=== PATIENT | male | born 1970 | race Caucasian/White ===

== ENCOUNTER → 2021-01-25 | Outpatient (CLI) | payer BC ==
--- NOTE | 2021-01-25 14:25 | XR ---
EXAMINATION TYPE: XR lumbosacral spine min 4V DATE OF EXAM: 01/25/2021 CLINICAL HISTORY: pain COMPARISON: NONE TECHNIQUE: Frontal, lateral, and oblique images of the lumbar spine are obtained. FINDINGS: There are 5 lumbar type vertebral bodies identified. The lumbar spine shows satisfactory alignment without evidence of acute fracture or dislocation. Vertebral body heights are within normal limits. Degenerative changes noted. The overlying soft tissue appears unremarkable. IMPRESSION: No acute fracture or dislocation is seen in the lumbar spine.ICD 10 NO FRACTURE, INITIAL EVALUATION
--- NOTE | 2021-01-25 14:29 | XR ---
EXAMINATION TYPE: XR thoracic spine complete DATE OF EXAM: 01/25/2021 CLINICAL HISTORY: pain TECHNIQUE: Frontal, lateral, and swimmer's view of thoracic spine are obtained. COMPARISON: None. FINDINGS: Thoracic spine show satisfactory alignment without evidence of acute fracture or dislocatio n. Vertebral body heights are preserved. Disc spaces are well preserved. Visualized ribs are unrem arkable. IMPRESSION: No acute fracture or dislocation is seen in the thoracic spine. ICD 10 NO FRACTURE, INIT IAL EVALUATION
--- NOTE | 2021-01-25 14:39 | XR ---
EXAMINATION TYPE: XR cervical spine w flex/ext DATE OF EXAM: 01/25/2021 TECHNIQUE: Frontal, lateral, oblique, swimmers, and open mouth view of the cervical spine are obtaine d.Flexion and extension views are obtained. HISTORY: JT STIFFNESS,LOSS ROM,CERVICALGIA,THOR PAIN,LBP COMPARISON: None FINDINGS: The cervical spine is visualized in its entirety from C1 thru the top of T1 level, it is s atisfactory in alignment without evidence of acute fracture or dislocation. The pre-vertebral soft t issue appears within normal limits. Moderate degenerative changes and spurring. Normal alignment at n eutral, extension, and flexion. The C1-C2 articulation is within normal limits on the open mouth vie w. The oblique images are within normal limits. IMPRESSION: No acute fracture or dislocation is seen in the cervical spine.
== END | disposition home or self-care (01) ==
LOC: RADXRYALE 12:20
PROVIDERS: ATTEND Family Medicine
DX: M54.2 Cervicalgia (principal); M54.5 Low back pain; M54.6 Pain in thoracic spine; M25.60 Stiffness of unspecified joint, not elsewhere classified
CPT/HCPCS: 72052; 72072; 72110

== ENCOUNTER 2021-02-07 04:11 | Emergency (ER) | payer BC ==
[2021-02-07 04:22] VITALS: TEMP 99.5
[2021-02-07] MEDS ORDERED: SODIUM CHLORIDE 0.9% 1,000 ML IV STA (04:32)
--- NOTE | 2021-02-07 04:32 | ED ---
Chest Pain HPI - General Chief Complaint: Chest Pain Stated Complaint: Flank Pain Time Seen by Provider: 02/07/21 04:16 Source: patient, EMS, RN notes reviewed, old records reviewed Mode of arrival: EMS Limitations: no limitations - History of Present Illness Initial Comments: This is a 50-year-old male DF for evaluation. Patient with chest pain not fe eling well. Multiple complaints shortness of breath increased cough and congestion denying fevers no recent travel history no sick contacts. Patient states pain is side radiates to back radiates to the chest radiates to the abdomen. Patient has no significant medical history MD Complaint: chest pain -: days(s) Onset: during rest, during exertion Pain Location: substernal, left chest Pain Radiation: back Severity: moderate Severity scale (1-10): 4 Quality: tightness Consistency: constant Improves With: nothing Worsens With: nothing Context: recent illness Anginal Symptoms: dyspnea Other Symptoms: cough, palpitations Treatments Prior to Arrival: none - Related Data Previous Rx's Medication Instructions Recorded Amoxic-Pot Clav 875-125Mg 1 tab PO Q12HR #14 tablet 02/07/21 [Augmentin 875-125] Azithromycin [Zithromax Z-pack (6 0 mg PO DIRECTED #1 pack 02/07/21 tabs)] Allergies Allergy/AdvReac Type Severity Reaction Status Date / Time No Known Allergies Allergy Verified 02/07/21 04:21 Review of Systems ROS Statement: Those systems with pertinent positive or pertinent negative responses have been documented in the HPI. ROS Other: All systems not noted in ROS Statement are negative. 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 Past Psychological History: No Psychological Hx Reported Smoking Status: Current every day smoker Past Alcohol Use History: Occasional Past Drug Use History: None Reported General Exam Limitations: no limitations Course Vital Signs 02/07/21 02/07/21 02/07/21 04:13 06:00 06:53 Temperature 99.5 F Pulse Rate 99 87 87 Respiratory 18 20 20 Rate Blood Pressure 131/83 126/72 133/76 O2 Sat by Pulse 97 97 97 Oximetry - Reevaluation(s) Reevaluation #1: Medical record is reviewed Patient has improved pain control Patient informed of results and questions answered Reevaluation #2: Studies CTA chest abdomen pelvis negative for acute disease Chest Pain MDM - MDM 50 male of atypical chest and abdominal pain. Patient coming DF for evaluation. Patient does appear to have pneumonia. Will treat for pneumonia coronavirus currently negative. Patient can be discharged home Disposition Clinical Impression: Atypical chest pain, Pneumonia Narrative: ro [facility] Disposition: ADMITTED IP TO THIS HOSP Prescriptions: Amoxic-Pot Clav 875-125Mg [Augmentin 875-125] 1 tab PO Q12HR #14 tablet Azithromycin [Zithromax Z-pack (6 tabs)] 0 mg PO DIRECTED #1 pack Referrals: None,Stated [Primary Care Provider] - 1-2 days
[2021-02-07] MEDS ORDERED: KETOROLAC 15 MG/ML 1 ML VIAL IVP STA (04:33)
[2021-02-07 05:04] LABS: Basophils # (A) 0.1 k/uL (0-0.2); Basophils % (A) 0 %; Eosinophils # (A) 0.1 k/uL (0-0.7); Eosinophils % (A) 1 %; HCT 46.4 % (39.0-53.0); HGB 15.8 gm/dL (13.0-17.5); Lymphocytes # (A) 2.1 k/uL (1.0-4.8); Lymphocytes % (A) 12 %; MCH 29.1 pg (25.0-35.0); MCV 85.5 fL (80.0-100.0); Mean Platelet Volume 6.6; Monocytes # (A) 0.7 k/uL (0-1.0); Monocytes % (A) 4 %; Neutrophils # (A) 14.5 k/uL (1.3-7.7); Neutrophils % (A) 83 %; Platelet Count 189 k/uL (150-450); RBC 5.43 m/uL (4.30-5.90); RDW 13.5 % (11.5-15.5); WBC 17.5 k/uL (3.8-10.6)
[2021-02-07 05:14] LABS: ALT 23 U/L (4-49); AST 19 U/L (17-59); African American GFR (CKD) >90 (>60 ml/min/1.73 sqM); Albumin 3.5 g/dL (3.5-5.0); Alkaline Phosphatase 94 U/L (38-126); Anion Gap 6 mmol/L; Blood Urea Nitrogen 12 mg/dL (9-20); Carbon Dioxide 22 mmol/L (22-30); Chloride 108 mmol/L (98-107); Creatine Kinase 36 U/L (55-170); Glucose 114 mg/dL (74-99); Lipase 182 U/L (23-300); Magnesium 1.9 mg/dL (1.6-2.3); Non-African American GFR(CKD) >90 (>60 ml/min/1.73 sqM); Sodium 136 mmol/L (137-145); Total Bilirubin 0.7 mg/dL (0.2-1.3)
[2021-02-07 05:25] LABS: Creatine Kinase MB 0.4 ng/mL (0.0-2.4); Troponin I <0.012 ng/mL (0.000-0.034)
[2021-02-07 05:27] LABS: D-Dimer <0.17 mg/L FEU (<0.60); INR 0.8 (<1.2); Partial Thromboplastin Time 24.9 sec (22.0-30.0); Prothrombin Time 9.4 sec (9.0-12.0)
--- NOTE | 2021-02-07 05:50 | CT ---
EXAM: CT Abdomen and Pelvis With Intravenous Contrast CLINICAL HISTORY: ITS.REASON CT Reason: pain TECHNIQUE: Axial computed tomography images of the abdomen and pelvis with intravenous contrast. CTDI is 29.9 mGy and DLP is 1460 mGy-cm. This CT exam was performed using one or more of the following dose reduction techniques: automated exposure control, adjustment of the mA and/or kV according to patient size, and/or use of iterative reconstruction technique. COMPARISON: No relevant prior studies available. FINDINGS: Lung bases: The findings regarding the lung bases, please see the CT report of the chest performed the same day. ABDOMEN: Liver: Subcentimeter hypoattenuating rounded structures noted in the right lobe of the liver and the posterior aspect of the left lobe of the liver are too small to characterize but are presumed hepatic cysts. Gallbladder and bile ducts: The gallbladder is predominantly decompressed. No calcified stones. No ductal dilation. Pancreas: Unremarkable. No mass. No ductal dilation. Spleen: Unremarkable. No splenomegaly. Adrenals: Unremarkable. No mass. Kidneys and ureters: The kidneys demonstrate normal enhancement. The right kidney is malrotated. There is a 13 mm cortical cyst in the lateral aspect of the left kidney. No hydronephrosis or obstructing nephrolithiasis. Incidental subcentimeter nonobstructive nephrolithiasis in the inferior pole the right kidney. Stomach and bowel: Unremarkable. No obstruction. No mucosal thickening. PELVIS: Appendix: A normal caliber appendix is noted medial to the cecum in the right lower quadrant. Bladder: Unremarkable. No mass. Reproductive: Unremarkable as visualized. ABDOMEN and PELVIS: Intraperitoneal space: Unremarkable. No free air. No significant fluid collection. Bones/joints: No acute fracture. No dislocation. Soft tissues: Unremarkable. Vasculature: Unremarkable. No abdominal aortic aneurysm. Lymph nodes: Unremarkable. No enlarged lymph nodes. IMPRESSION: No significant acute findings in the abdomen or pelvis to suggest the patient's reported clinical symptoms. No bowel obstruction. No free intraperitoneal fluid or pneumoperitoneum.
--- NOTE | 2021-02-07 05:52 | CT ---
EXAM: CT Angiography Chest With Intravenous Contrast CLINICAL HISTORY: ITS.REASON CT Reason: pain TECHNIQUE: Axial computed tomographic angiography images of the chest with intravenous contrast. CTDI is 17.37 mGy and DLP is 504.6 mGy-cm. This CT exam was performed using one or more of the following dose reduction techniques: automated exposure control, adjustment of the mA and/or kV according to patient size, and/or use of iterative reconstruction technique. MIP reconstructed images were created and reviewed. COMPARISON: No relevant prior studies available. FINDINGS: Pulmonary arteries: No evidence for pulmonary embolism. Aorta: No acute findings. No thoracic aortic aneurysm. Lungs: Scattered ground-glass opacities noted in the bilateral lower lobes, the inferior right middle lobe and the inferior lingular segments. The lungs are otherwise clear. Incidental subcentimeter calcified granulomas in the posterior lung bases. Pleural space: Unremarkable. No significant effusion. No pneumothorax. Heart: The cardiac chambers are normal in size. Subcentimeter pericardial effusion noted. Bones/joints: No acute fracture. No dislocation. Soft tissues: Unremarkable. Lymph nodes: Multiple bilateral hilar and subcarinal lymph nodes are noted measuring up to 12 mm in diameter. IMPRESSION: 1. No evidence for pulmonary embolism. 2. Scattered ground-glass opacities noted in the bilateral lower lobes, the inferior right middle lobe and the inferior lingular segments. The findings are slightly greater than expected for dependent atelectasis. Differential consideration includes atypical bibasilar atelectatic changes or bibasilar infection, to include atypical bacterial and viral processes. The lungs are otherwise clear. No pleural effusion or pneumothorax. 3. Multiple bilateral hilar and subcarinal lymph nodes are noted measuring up to 12 mm in diameter. Suspect reactive changes. Lymphoproliferative process is considered less likely.
[2021-02-07 06:37] LABS: C Reactive Protein 3.1 mg/dL (<1.0)
[2021-02-07 06:52] VITALS: PULSE 87; RESP 20
[2021-02-07 06:54] VITALS: BP 133/76
== END 2021-02-07 07:15 | disposition other institution (70) ==
LOC: EC 04:11
DX: J18.9 Pneumonia, unspecified organism (principal); R10.9 Unspecified abdominal pain; F17.200 Nicotine dependence, unspecified, uncomplicated; Z20.822 Contact with and (suspected) exposure to COVID-19
CPT/HCPCS: 36415; 93005; 85379; 83880; 80053; 82550; 82553; 83615; 83690; 83735; 84484; 85025; 85610; 85730; 86140; 87635; 71275; 74177; 99285; 96374; J1885; Q9967

== ENCOUNTER → 2022-07-27 | Outpatient (CLI) | payer BC ==
--- NOTE | 2022-08-01 08:46 | US ---
EXAMINATION TYPE: US arterial LE multi level DATE OF EXAM: 07/27/2022 3:13 PM CLINICAL HISTORY: M79.669 PAIN IN LOWER LEG. History of tobacco use Doppler Waveforms: Right: Multiphasic 2 monophasic Left: Multiphasic 2 biphasic Ankle-Brachial Indices: Right: 0.66 Left: 0.92 Toe Brachial Indices: Right: 0.46 Left: 0.50 Unable to obtain a signal on right dorsalis pedis. IMPRESSION: Diminished bilateral TBI values consistent with at least mild peripheral arterial diseas e in the bilateral feet. Clinical correlation and follow-up advised.
== END | disposition home or self-care (01) ==
LOC: RADUSWWP 14:21
PROVIDERS: ATTEND Family Medicine
DX: Z53.9 Procedure and treatment not carried out, unspecified reason (principal)
CPT/HCPCS: 93923

== ENCOUNTER 2022-12-27 20:32 | Emergency (ER) | payer BC ==
[2022-12-27 20:43] VITALS: RESP 18; TEMP 98.4
[2022-12-27] MEDS ORDERED: SODIUM CHLORIDE 0.9% 1,000 ML IV STA (21:28)
[2022-12-27] MEDS ORDERED: DICYCLOMINE 10 MG/ML 2 ML AMP IM STA (21:28)
--- NOTE | 2022-12-27 21:54 | ED ---
General Adult HPI - General Chief complaint: Abdominal Pain Stated complaint: ABD Pain,SOB Time Seen by Provider: 12/27/22 21:10 Source: patient, RN notes reviewed, old records reviewed Mode of arrival: ambulatory - History of Present Illness Initial comments: 52-year-old male with 24 hours of abdominal pain and distention. Patient has had crampy generalized abdominal pain. He's had nausea without vomiting. He had a bowel movement yesterday which was normal. No fever. - Related Data Previous Rx's Medication Instructions Recorded Amoxic-Pot Clav 875-125Mg 1 tab PO Q12HR #14 tablet 02/07/21 [Augmentin 875-125] Azithromycin [Zithromax Z-pack (6 0 mg PO DIRECTED #1 pack 02/07/21 tabs)] Allergies Allergy/AdvReac Type Severity Reaction Status Date / Time No Known Allergies Allergy Verified 12/27/22 20:43 Review of Systems ROS Statement: Those systems with pertinent positive or pertinent negative responses have been documented in the HPI. ROS Other: All systems not noted in ROS Statement are negative. 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 Absent: tenderness Respiratory exam: Present: rhonchi. Absent: respiratory distress Cardiovascular Exam: Present: regular rate, normal rhythm GI/Abdominal exam: Present: distended, tenderness, hyperactive bowel sounds Extremities exam: Present: normal inspection, normal capillary refill. Absent: pedal edema, joint swelling Neurological exam: Present: alert, oriented X3, CN II-XII intact. Absent: motor sensory deficit Psychiatric exam: Present: normal affect, normal mood Skin exam: Present: warm, dry Course Vital Signs 12/27/22 12/27/22 20:39 21:30 Temperature 98.4 F Pulse Rate 98 97 Respiratory 18 18 Rate Blood Pressure 158/71 156/91 O2 Sat by Pulse 99 100 Oximetry Medical Decision Making - Medical Decision Making Was pt. sent in by a medical professional or institution (DAVID Rausch, LUM[employer]ARD WORKER, urgent care, hospital, or alf...) When possible be specific @ -[No] Did you speak to anyone other than the patient for history (EMS, parent, family, police, friend...)? What history was obtained from this source @ -[No] Did you review nursing and triage notes (agree or disagree)? Why? @ -[I reviewed and agree with nursing and triage notes] Were old charts reviewed (outside hosp., previous admission, EMS record, old EKG, old radiological studies, urgent care reports/EKG's, alf records)? Report findings @ -Reviewed previous CT imaging Differential Diagnosis (chest pain, altered mental status, abdominal pain women, abdominal pain men, vaginal bleeding, weakness, fever, dyspnea, syncope, headache, dizziness, GI bleed, back pain, seizure, CVA, palpatations, mental health, musculoskeletal)? @ -Differential Abdominal Pain Men: Appendicitis, cholecystitis, diverticulosis, ischemic bowel, pancreatitis, hepatitis, UTI, gastroenteritis, AAA, incarcerated hernia, bowel obstruction, constipation, inflammatory bowel, hepatitis, peptic ulcer disease, splenic infarction, perforated viscus, testicular torsion, this is not meant to be an all-inclusive list EKG interpreted by me (3pts min.). @ -[As above] X-rays interpreted by me (1pt min.). @ -KUB negative for extraction or intraperitoneal free air CT interpreted by me (1pt min.). @ -[None done] U/S interpreted by me (1pt. min.). @ -[None done] What testing was considered but not performed or refused? (CT, X-rays, U/S, labs)? Why? @ -[None] What meds were considered but not given or refused? Why? @ -[None] Did you discuss the management of the patient with other professionals (professionals i.e. DAVID Rausch, [employer] WORKER, lab, RT, psych nurse, certified social workers in health care, paint line supervisor, teacher, mortgage loan officer originator, watch case polisher)? Give summary @ -[No] Was smoking cessation discussed for >3mins.? @ -[No] Was critical care preformed (if so, how long)? @ -[No] Were there social determinants of health that impacted care today? How? (Homelessness, low income, unemployed, alcoholism, drug addiction, transportati on, low edu. Level, literacy, decrease access to med. care, long-term, rehab)? @ -[No] Was there de-escalation of care discussed even if they declined (Discuss DNR or withdrawal of care, Hospice)? DNR status @ -[No] What co-morbidities impacted this encounter? (DM, HTN, Smoking, COPD, CAD, Cancer, CVA, ARF, Chemo, Hep., AIDS, mental health diagnosis, sleep apnea, morbid obesity)? @ -[None] Was patient admitted / discharged? Hospital course, mention meds given and route, prescriptions, significant lab abnormalities, going to OR and other pertinent info. @ -[Normal CBC, normal CMP, negative abdominal x-ray. I did reevaluate the patient has no significant tenderness. He had a bowel movement this afternoon which she did not initially recall. At this point I feel that observation period is safe and the patient will return with worsening pain, vomiting, development of new symptoms.] Undiagnosed new problem with uncertain prognosis? @ -[No] Drug Therapy requiring intensive monitoring for toxicity (Heparin, Nitro, Insulin, Cardizem)? @ -[No] Were any procedures done? @ -[No] Diagnosis/symptom? @ -Abdominal pain Acute, or Chronic, or Acute on Chronic? @ -Acute - Lab Data Result diagrams: 12/27/22 21:58 12/27/22 21:58 Lab Results 12/27/22 12/27/22 12/27/22 Range/Units 21:36 21:58 21:58 WBC 10.7 H (3.8-10.6) k/uL RBC 5.77 (4.30-5.90) m/uL Hgb 16.6 (13.0-17.5) gm/dL Hct 47.6 (39.0-53.0) % MCV 82.5 (80.0-100.0) fL MCH 28.8 (25.0-35.0) pg MCHC 35.0 (31.0-37.0) g/dL RDW 13.2 (11.5-15.5) % Plt Count 195 (150-450) k/uL MPV 6.9 Neutrophils % 73 % Lymphocytes % 20 % Monocytes % 5 % Eosinophils % 1 % Basophils % 0 % Neutrophils # 7.8 H (1.3-7.7) k/uL Lymphocytes # 2.2 (1.0-4.8) k/uL Monocytes # 0.5 (0-1.0) k/uL Eosinophils # 0.1 (0-0.7) k/uL Basophils # 0.0 (0-0.2) k/uL PT 9.6 (9.0-12.0) sec INR 0.9 (<1.2) APTT 27.0 (22.0-30.0) sec Sodium (137-145) mmol/L Potassium (3.5-5.1) mmol/L Chloride (98-107) mmol/L Carbon Dioxide (22-30) mmol/L Anion Gap mmol/L BUN (9-20) mg/dL Creatinine (0.66-1.25) mg/dL Est GFR (CKD-EPI)AfAm (>60 ml/min/1.73 sqM) Est GFR (CKD-EPI)NonAf (>60 ml/min/1.73 sqM) Glucose (74-99) mg/dL Plasma Lactic Acid [place]am (0.7-2.0) mmol/L Calcium (8.4-10.2) mg/dL Total Bilirubin (0.2-1.3) mg/dL AST (17-59) U/L ALT (4-49) U/L Alkaline Phosphatase (38-126) U/L Total Protein (6.3-8.2) g/dL Albumin (3.5-5.0) g/dL Amylase (30-110) U/L Lipase (23-300) U/L Urine Color Yellow Urine Appearance Clear (Clear) Urine pH 5.5 (5.0-8.0) Ur Specific [place] 1.022 (1.001-1.035) Urine Protein Trace H (Negative) Urine Glucose (UA) Negative (Negative) Urine Ketones Negative (Negative) Urine Blood Negative (Negative) Urine Nitrite Negative (Negative) Urine Bilirubin Negative (Negative) Urine Urobilinogen <2.0 (<2.0) mg/dL Ur Leukocyte Esterase Negative (Negative) 12/27/22 12/27/22 Range/Units 21:58 21:58 WBC (3.8-10.6) k/uL RBC (4.30-5.90) m/uL Hgb (13.0-17.5) gm/dL Hct (39.0-53.0) % MCV (80.0-100.0) fL MCH (25.0-35.0) pg MCHC (31.0-37.0) g/dL RDW (11.5-15.5) % Plt Count (150-450) k/uL MPV Neutrophils % % Lymphocytes % % Monocytes % % Eosinophils % % Basophils % % Neutrophils # (1.3-7.7) k/uL Lymphocytes # (1.0-4.8) k/uL Monocytes # (0-1.0) k/uL Eosinophils # (0-0.7) k/uL Basophils # (0-0.2) k/uL PT (9.0-12.0) sec INR (<1.2) APTT (22.0-30.0) sec Sodium 140 (137-145) mmol/L Potassium 4.6 (3.5-5.1) mmol/L Chloride 108 H (98-107) mmol/L Carbon Dioxide 25 (22-30) mmol/L Anion Gap 7 mmol/L BUN 14 (9-20) mg/dL Creatinine 1.07 (0.66-1.25) mg/dL Est GFR (CKD-EPI)AfAm >90 (>60 ml/min/1.73 sqM) Est GFR (CKD-EPI)NonAf 80 (>60 ml/min/1.73 sqM) Glucose 105 H (74-99) mg/dL Plasma Lactic Acid [place] 1.2 (0.7-2.0) mmol/L Calcium 9.4 (8.4-10.2) mg/dL Total Bilirubin 0.6 (0.2-1.3) mg/dL AST 22 (17-59) U/L ALT 24 (4-49) U/L Alkaline Phosphatase 99 (38-126) U/L Total Protein 6.9 (6.3-8.2) g/dL Albumin 4.1 (3.5-5.0) g/dL Amylase 83 (30-110) U/L Lipase 78 (23-300) U/L Urine Color Urine Appearance (Clear) Urine pH (5.0-8.0) Ur Specific [place] (1.001-1.035) Urine Protein (Negative) Urine Glucose (UA) (Negative) Urine Ketones (Negative) Urine Blood (Negative) Urine Nitrite (Negative) Urine Bilirubin (Negative) Urine Urobilinogen (<2.0) mg/dL Ur Leukocyte Esterase (Negative) Disposition Clinical Impression: Abdominal pain Disposition: HOME SELF-CARE Condition: Good Instructions (If sedation given, give patient instructions): Abdominal Pain (ED) Is patient prescribed a controlled substance at d/c from ED?: No Referrals: None,Stated [Primary Care Provider] - 1-2 days Time of Disposition: 23:14
--- NOTE | 2022-12-27 22:16 | XR ---
EXAMINATION TYPE: XR KUB DATE OF EXAM: 12/27/2022 COMPARISON: NONE HISTORY: Abdominal pain TECHNIQUE: 2 views upright FINDINGS: There is no sign of intestinal obstruction or pneumoperitoneum. Fecal pattern is normal. No sign of a mass. No pathologic calcification over the kidneys. IMPRESSION: Nonacute abdomen.
[2022-12-27 22:27] LABS: Basophils % (A) 0 %; Eosinophils # (A) 0.1 k/uL (0-0.7); Eosinophils % (A) 1 %; HCT 47.6 % (39.0-53.0); HGB 16.6 gm/dL (13.0-17.5); Lymphocytes # (A) 2.2 k/uL (1.0-4.8); Lymphocytes % (A) 20 %; MCH 28.8 pg (25.0-35.0); MCV 82.5 fL (80.0-100.0); Mean Platelet Volume 6.9; Monocytes # (A) 0.5 k/uL (0-1.0); Monocytes % (A) 5 %; Neutrophils # (A) 7.8 k/uL (1.3-7.7); Neutrophils % (A) 73 %; Platelet Count 195 k/uL (150-450); RBC 5.77 m/uL (4.30-5.90); RDW 13.2 % (11.5-15.5); WBC 10.7 k/uL (3.8-10.6)
[2022-12-27 22:39] LABS: ALT 24 U/L (4-49); AST 22 U/L (17-59); African American GFR (CKD) >90 (>60 ml/min/1.73 sqM); Albumin 4.1 g/dL (3.5-5.0); Alkaline Phosphatase 99 U/L (38-126); Amylase 83 U/L (30-110); Anion Gap 7 mmol/L; Blood Urea Nitrogen 14 mg/dL (9-20); Calcium 9.4 mg/dL (8.4-10.2); Carbon Dioxide 25 mmol/L (22-30); Chloride 108 mmol/L (98-107); Glucose 105 mg/dL (74-99); Lipase 78 U/L (23-300); Non-African American GFR(CKD) 80 (>60 ml/min/1.73 sqM); Potassium 4.6 mmol/L (3.5-5.1); Sodium 140 mmol/L (137-145); Total Bilirubin 0.6 mg/dL (0.2-1.3); Total Protein 6.9 g/dL (6.3-8.2)
[2022-12-27 23:09] LABS: INR 0.9 (<1.2); Prothrombin Time 9.6 sec (9.0-12.0)
[2022-12-27 23:16] LABS: Appearance,Urine Clear (Clear); Bilirubin,Urine Negative (Negative); Blood,Urine Negative (Negative); Color,Urine Yellow; Glucose,Urine (UA) Negative (Negative); Ketones,Urine Negative (Negative); Leukocyte Esterase,Urine Negative (Negative); Nitrite,Urine Negative (Negative); PH, Urine 5.5 (5.0-8.0); Protein,Urine Trace (Negative); Specific Gravity,Urine 1.022 (1.001-1.035); Urobilinogen,Urine <2.0 mg/dL (<2.0)
[2022-12-27 23:37] VITALS: BP 135/88; PULSE 87
== END 2022-12-28 00:14 | disposition home or self-care (01) ==
LOC: EC 20:32
DX: R10.9 Unspecified abdominal pain (principal); F17.200 Nicotine dependence, unspecified, uncomplicated
CPT/HCPCS: 36415; 80053; 82150; 83605; 83690; 85025; 85610; 85730; 81003; 74018; 99285; 96372; 96360; J0500

== ENCOUNTER → 2022-12-31 | Outpatient (CLI) | payer BC ==
--- NOTE | 2022-12-31 23:58 | CT ---
EXAMINATION TYPE: CT angio abd aorta w/Runoff CT DLP: 2766.0 mGycm, Automated exposure control for dose reduction was used. DATE OF EXAM: 12/31/2022 5:22 PM COMPARISON: 02/07/2021 CT chest CLINICAL INDICATION:Male, 52 years old with history of I24.8 OTHER FORMS OF ACUTE ISCHEMIC HEART DISE ASE, Acute Ischemic Heart Disease TECHNIQUE: Multiple thin slice sub-millimeter images were obtained through the abdomen, pelvis, and l ower extremities after administration of contrast. 3-D reconstructed images and maximum intensity pr ojection images were obtained of the abdomen, pelvis, and lower extremities. CT Contrast: Contrast used:125 cc mL of Isovue 370 without and with IV Contrast, Oral contrast used: None FINDINGS: CTA Abdomen and pelvis: The abdominal aorta does not demonstrate aneurysmal dilatation. Atherosclero tic plaquing is identified within the abdominal aorta. The origins of the superior mesenteric artery , renal arteries, inferior mesenteric artery, and celiac axis are patent. There are 2 renal arteries bilaterally. The iliac vessels are normal in morphology. There is mild atherosclerotic plaque of the common iliac and external iliac arteries. CTA Lower extremities: Right: Scattered atherosclerotic disease throughout the lower extremity. The common femoral and super ficial femoral arteries are patent. The popliteal artery is patent. There is a diminutive appearance of the posterior tibial artery and peroneal artery there is suspected occlusion with reconstitution d istally. The posterior tibial artery does cross the ankle. The anterior tibial artery becomes diminut gabi. There is no contrast within the anterior tibial artery has a cross the ankle which could be due to bolus timing. Left: Scattered atherosclerotic disease throughout the lower extremity. The common femoral and superf icial femoral arteries are patent. The popliteal artery is patent. There is significant luminal narro wing at the distal popliteal artery at its bifurcation with greater than 50% involving the proximal a nterior tibial artery and the the tibial peroneal trunk is diminutive. At its origin with greater sindhu n 50% stenosis. Anterior tibial artery is diminutive in size and does not cross the ankle. The funeral director and embalmer ior tibial artery is patent and crosses the ankle. The peroneal artery is felt to cross the ankle ant eriorly suggesting anatomic variant anatomy LOWER CHEST: Similar diffuse lower extremity groundglass appearance of the lung parenchyma most prono unced in the most inferior aspect of the lungs. 5 mm right lower lobe pulmonary nodule. LIVER: Unremarkable GALLBLADDER AND BILE DUCTS: Unremarkable. PANCREAS: Unremarkable. SPLEEN: Spleen is enlarged measuring up to 15 cm. ADRENAL GLANDS: Unremarkable. KIDNEYS AND URETERS: Anterior position of the right renal sinus. Left renal cyst. Nonobstructing right calculus measuring 3 mm. No obstructive uropathy visualized. PELVIS BLADDER: Unremarkable REPRODUCTIVE: Prostate is enlarged in size measuring 4.9 cm in transverse dimension. ABDOMEN & PELVIS STOMACH AND BOWEL: No evidence of bowel obstruction. Few scattered colonic diverticula present. PERITONEUM: No evidence of pneumoperitoneum or free fluid. VASCULATURE: No evidence of aortic aneurysm. MUSCULOSKELETAL: No acute osseous abnormalities LYMPH NODES: No gross evidence for lymphadenopathy. SOFT TISSUE/ABDOMINAL WALL: Bilateral fat-containing inguinal hernias. IMPRESSION Right lower extremity: 1. Diminutive appearance of the right posterior tibial artery distally with reconstitution. Posterio r tibial artery eventually crosses the ankle. 2. Diminutive peroneal artery. 3. Diminutive anterior tibial artery which does not definitively demonstrate contrast extending acro ss the ankle joint. Left lower extremity: 1. Luminal narrowing of the distal popliteal artery at its bifurcation with greater than 50% stenosi s of the anterior tibial artery proximal portion as well as the tibial peroneal trunk. 2. The anterior tibial artery is diminutive and does not definitely cross the ankle. 3. Suspected anatomic variant peroneal artery which does cross the ankle. Thorax/abdomen: 1. Lower lung airspace opacities partially visualized and seen dating back to prior on 02/07/2021. Un derlying pulmonary interstitial lung disease suspected. 2. Colonic diverticulosis. 3. Nonobstructing right renal calculus. 4. Prostatomegaly correlate serum PSA. 5. 5 mm right lower lobe pulmonary nodule not definitely seen on prior. Short-term follow-up CT johnson laguerre
== END | disposition home or self-care (01) ==
LOC: RADCTMAIN 15:51
PROVIDERS: ATTEND Surgery
DX: I24.8 Other forms of acute ischemic heart disease (principal); N20.0 Calculus of kidney; N40.0 Benign prostatic hyperplasia without lower urinary tract symptoms; R91.8 Other nonspecific abnormal finding of lung field; K57.30 Diverticulosis of large intestine without perforation or abscess without bleeding
CPT/HCPCS: 75635; Q9967